=== PATIENT | male | born 1940 | race Caucasian/White ===

== ENCOUNTER 2017-06-01 07:03 | Inpatient (IN) | payer MEDICARE ==
--- NOTE | 2017-05-29 17:23 | HP ---
HISTORY AND PHYSICAL: DATE OF ADMISSION/SURGERY: 06/01/17 DATE OF EXAMINATION: 05/26/17 PROCEDURE: Left total hip replacement. ATTENDING PHYSICIAN: Dr. Charlee Ramos * (DICTATED BY RIDDHI VEGA) CHIEF COMPLAINT: Left hip pain. HISTORY OF PRESENT ILLNESS: The patient is a very pleasant 76-year-old gentleman, who presents today for history and physical examination of his left hip pain. The patient had a right total hip arthroplasty [address] Scott and states over the past year, his hip pain has become more severe where he is unable to perform his ADLs without difficulty. He has tried conservative methods such as antiinflammatory, home exercises, and using a cane; however, has not had any improvement and he would like to undergo a left total hip replacement by Dr. Charlee Ramos, which is scheduled for 06/01/17. PAST MEDICAL HISTORY: 1. Osteoarthritis. 2. Hypertension. 3. Hypercholesterolemia. 4. Hypothyroidism. PAST SURGICAL HISTORY: 1. Right total hip arthroplasty, 2001, with a history of dislocation on postop day 2. 2. Left rotator cuff shoulder repair. MEDICATIONS: 1. Aspirin 325 mg 1 tablet daily. 2. Levothyroxine 75 mcg 1 tablet daily. 3. Zocor 20 mg 1 tablet daily. 4. Metoprolol XL 25 mg 1 tablet daily. ALLERGIES: No known drug allergies. FAMILY MEDICAL HISTORY: Father with heart disease and cancer. SOCIAL HISTORY: The patient lives with his in [place]. No tobacco or recreational drug use or alcohol use. Walks independently with occasional use of a cane. 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 REVIEW OF SYSTEMS: General: Denies fever, chills. Positive for intentional weight loss. Positive for lightheadedness with getting out of bed or rolling over quickly. No lightheadedness with going from sitting to standing position. HEENT: No headaches. No fainting. Cardio: Denies chest pain, palpitations, or history of murmur. Pulmonary: Positive for shortness of breath. The patient recently underwent stress testing for this. No history of CO. No history of COPD. GI: Positive for UTI approximately 2 to 3 months ago. Denies urinary frequency, urgency. No history of chronic or frequent UTIs. No history of kidney stones. : Negative for nausea, vomiting, constipation, diarrhea. Integument: No bruises, open wounds, or sores. No difficulty with wound healing. Hematologic: No history of DVT or PEs. No history of anemia or easy bruising/bleeding. Infectious Disease: No history of MRSA, hepatitis, VRE , or HIV. Endocrine: Positive for hypothyroidism. Negative for diabetes. Musculoskeletal: Positive for chronic lower back pain. Positive for right hip pain. PHYSICAL EXAMINATION VITAL SIGNS: Height 66 inches, weight 270 pounds, pulse 64, blood pressure 130/ 80, respirations 16, temperature 98.5, BMI is 43.6 DIAGNOSTIC STUDIES: Radiographs of the right hip showed an uncemented right total hip arthroplasty. The left hip showing severe end-stage arthritis with bone-to- bone contact, osteophyte formation, and joint space narrowing. ASSESSMENT: Left end-stage arthritis of the hip. PLAN: This is a very pleasant 76-year-old gentleman with left-sided hip pain. He was elected to undergo a left total hip arthroplasty by Dr. Ramos on . He will undergo PAT testing this afternoon. No medications were sent to the patient's pharmacy preoperatively as the patient is unsure of what narcotic medication he will be able to take. He underwent a nuclear stress test, which showed an ejection fraction of 60% and was seen by Dr. Hernandez with regards to Cardiology as well as by his primary care, Dr. Butt. He had no questions or concerns with regards to the procedure and postop recovery, he would like to recover at home. RIDDHI VEAG [id number]/[facility] #: [id number] [facility] HOSPITALBrie
[~2017-06-01 07:03] MED LIST: Buffered Lidocaine 0.9% SYRIN* 5 ML/SYR SYRINGE INTRADERM ONE
[2017-06-01] MEDS ORDERED: ceFAZolin 2 GM PREMIX (*) 2 GM/50 ML BAG IVPB ONE (07:14)
[2017-06-01] MEDS ORDERED: ceFAZolin 1 GM* X ONE DOSE IVPB ×2 (07:15)
[2017-06-01] MEDS ORDERED: Buffered Lidocaine 0.9% SYRIN* 5 ML/SYR SYRINGE ONE (07:15)
[2017-06-01] MEDS ORDERED: Midazolam* 1 MG/ML 2 ML VIAL (2 MG) ONE ×3 (08:48→09:36)
[2017-06-01] MEDS ORDERED: Morphine PF AMP (0.5MG/ML)* 5 MG/10 ML AMP ONE (09:07)
[2017-06-01] MEDS ORDERED: fentaNYL* 50 MCG/ML 2 ML VIAL (100 MCG VIAL) ONE (09:07)
[2017-06-01] MEDS ORDERED: Phenylephrine INJ* 10 MG/ML 1 ML VIAL (10 MG) ONE (09:56)
[2017-06-01] MEDS ORDERED: diPHENhydraMINE IV* 50 MG/ML 1 ml VIAL (BENADRYL) ONE (09:59)
[2017-06-01] MEDS ORDERED: Dexmedetomidine* 200 MCG/2 ML 2 ML VIAL ONE (10:08)
[2017-06-01] MEDS ORDERED: Dexamethasone IV* 4 MG/ML 1 ML (4 MG) ONE (10:33)
[2017-06-01] MEDS ORDERED: EPHEDrine (Pressors)* 50 MG/ML VIAL ONE (10:33)
[2017-06-01] MEDS ORDERED: Famotidine IV* 10 MG/ML 2 ML (20 mg) ONE (10:33)
[2017-06-01] MEDS ORDERED: Lidocaine 2% PF * 5 ML VIAL ONE (10:36)
[2017-06-01] MEDS ORDERED: Phenylephrine INJ* 50 MG in NS 0.9% 250 ML* 245 ML IV PRN (11:15)
[2017-06-01] MEDS ORDERED: fentaNYL* 50 MCG/ML 2 ML VIAL (100 MCG VIAL) IV PRN (11:15)
[2017-06-01] MEDS ORDERED: Acetaminophen TAB* 325 MG PO PRN (11:15)
[2017-06-01] MEDS ORDERED: Ondansetron INJ* 2 MG/ML VIAL IV PRN ×2 (11:15→11:17)
[2017-06-01] MEDS ORDERED: DiMENhydriNATE IV* 50 MG/ML VIAL IV PUSH PRN (11:17)
[2017-06-01] MEDS ORDERED: Naloxone* 0.4 MG/ML 1 ML VIAL IV PRN (11:17)
[2017-06-01] MEDS ORDERED: Nalbuphine* 20 MG/ML 1 ML VIAL IV PRN (11:17)
[2017-06-01] MEDS ORDERED: diPHENhydraMINE IV* 50 MG/ML 1 ml VIAL (BENADRYL) IV PRN (11:17)
[2017-06-01] MEDS ORDERED: HYDROcodone/ACETAMIN 5-325 MG* 1 TAB PO PRN (11:17)
[2017-06-01] MEDS ORDERED: PROCHLORPERAZINE INJ 5 MG/ML 2 ML VIAL IV PRN (11:17)
[2017-06-01] MEDS ORDERED: Bisacodyl SUPP* 10 MG SUPP PR PRN (12:42)
[2017-06-01] MEDS ORDERED: Magnesium Hydroxide LIQ* 30 ML UDC PO PRN (12:42)
--- NOTE | 2017-06-01 12:57 | RAD ---
INDICATION: Left hip replacement COMPARISON: None Single crosstable lateral portable view shows initiation of left hip arthroplasty. There is placement of the acetabular cup with a femoral stem placed for sizing.
[2017-06-01] MEDS ORDERED: ceFAZolin 1 GM VIAL(*) 1 GM in NS 0.9% 50 ML* 50 ML IVPB SCH (13:00)
--- NOTE | 2017-06-01 13:35 | RAD ---
INDICATION: Status post total left hip replacement surgery. COMPARISON: Comparison is made with a prior study from March 06, 2017. TECHNIQUE: An AP view of the pelvis and frontal and lateral views of the left hip were obtained. FINDINGS: The patient is status post total left hip replacement surgery. The bones and prostheses are in normal alignment. There is a small amount of air present laterally consistent with the patient's recent surgery. The patient's also status post remote total right hip replacement surgery. IMPRESSION: STATUS POST TOTAL LEFT HIP REPLACEMENT SURGERY.
[2017-06-01] MEDS: Acetaminophen TAB* 325 MG PO SCH ×4 (14:50→23:59)
[2017-06-01] MEDS: ceFAZolin 1 GM VIAL(*) 1 GM in NS 0.9% 50 ML* 50 ML IVPB SCH ×2 (16:32→23:59)
[2017-06-01] MEDS ORDERED: Warfarin TAB(*) 6 MG PO ONE (17:00)
[2017-06-01] MEDS: Atorvastatin* 10 MG TAB PO SCH (17:47)
[2017-06-01] MEDS: Metoprolol Succinate XL TAB* 25 MG PO SCH (20:51)
[2017-06-01] MEDS: Levothyroxine TAB* 75 MCG TAB PO SCH (20:51)
[2017-06-01] MEDS: Docusate CAP* 100 MG PO SCH (20:52)
[2017-06-01] MEDS ORDERED: [UNRECOGNIZED DRUG - OTHER] PO SCH (21:00)
[2017-06-01] MEDS ORDERED: PRESERVISION AREDS PO SCH (21:00)
[2017-06-02] MEDS ORDERED: oxyCODONE/Acetamin 5/325 MG* TAB PO PRN (01:30)
[2017-06-02] MEDS ORDERED: diPHENhydraMINE PO* 25 MG PO PRN (01:30)
[2017-06-02] MEDS ORDERED: Morphine INJ* 2 MG/ML 1 ML SYRINGE (TWO MG - NEW SYRINGE VERSION) IV PRN (01:30)
[2017-06-02] MEDS ORDERED: Acetaminophen TAB* 325 MG PO PRN (01:30)
[2017-06-02] MEDS: oxyCODONE/Acetamin 5/325 MG* TAB PO PRN ×3 (05:39→21:13)
[2017-06-02] MEDS: Levothyroxine TAB* 75 MCG TAB PO SCH (05:39)
[2017-06-02 06:39] LABS: Hematocrit 33 % (42-52)
[2017-06-02 06:55] LABS: BUN/Creatinine Ratio 15.7 (8-20); Calcium 8.6 mg/dL (8.6-10.3); EGFR African American 140.3 (>60); EGFR Non-African American 109.1 (>60); Potassium 4.1 mmol/L (3.5-5.0)
[2017-06-02] MEDS: ceFAZolin 1 GM VIAL(*) 1 GM in NS 0.9% 50 ML* 50 ML IVPB SCH (07:30)
[2017-06-02] MEDS: Vitamin THERAPEUTIC TAB PO SCH (08:13)
[2017-06-02] MEDS: Docusate CAP* 100 MG PO SCH ×2 (08:13→21:13)
--- NOTE | 2017-06-02 12:28 | OP ---
OPERATIVE REPORT: DATE OF OPERATION: 06/01/17 DATE OF : 36 SURGEON: Charlee Ramos MD FRUIT BUYING GRADER: RIDDHI Mcmahon Ms. Rajan did help throughout the procedure with preparation of the leg, wound retraction, manipul ation of the hip, and wound closure. ANESTHESIOLOGIST: Agustin Vitale MD ANESTHESIA: Spinal. PRE-OP DIAGNOSIS: Severe end-stage degenerative osteoarthritis of the left hip joint. POST-OP DIAGNOSIS: Severe end-stage degenerative osteoarthritis of the left hip joint. OPERATIVE PROCEDURE: Left total hip arthroplasty. INDICATIONS: Mr. Roman is a 76-year-old gentleman, who is here with years of increasingly severe left hip pain. He failed conservative treatment with antiinflammatories, pain medications, physical therapy, and intraarticular injection. He elected to undergo left total hip arthroplasty due to co ntinued pain and decreased quality of life. His radiograph showed severe [id number] arthritis. I nformed consent was obtained from the patient. He understood the risks of surgery included, but wer e not limited to, bleeding, infection, damage to nearby structures, continued pain, need for further surgery, intraoperative fracture, nerve palsy, hardware failure or loosening, dislocation, leg desmond th discrepancy, stroke, heart attack, blood clot, and . He wished to proceed. ESTIMATED BLOOD LOSS: 350 cc. COMPLICATIONS: None. SPECIMEN: Femoral head and acetabular reaming sent to Pathology. HARDWARE USED: This is uncemented Dawson total hip hardware. For the cup, a Tritanium cluster hol e shell 58F, a single 25-mm cancellous bone screw. For the liner, an MDM cementless liner 46F. For the femoral stem, an Accolade TMZF 4.5 with a 127-degree neck. For the head, a Biolox delta cerami c V40 28+0. For the insert, a faith MDM 28/28/52/46F. INTRAOPERATIVE FINDINGS: Intraoperatively, the patient was noted to have severe end-stage arthritis with complete loss of cartilage in the femoral head and acetabulum. DESCRIPTION OF PROCEDURE: Mr. Roman was identified in the preanesthesia unit. His left lower extr emity was marked as the correct operative side. Informed consent was signed and placed in the chart . The patient was taken to the operating room and placed under spinal anesthesia. A Corona catheter was placed. The patient was placed in the right lateral decubitus position on the pegboard. All b char prominences were well padded. Left lower extremity was prepped and draped in the usual sterile fashion. Preop time-out was made to correctly identify the patient's side and site. Appropriate pe rioperative antibiotics were given within 1 hour of incision. A 15-cm posterior hip incision was made with a 10-blade and carried down sharply to the lateral fasc ial layer. Lateral fascia was incised in line with the skin incision. A Charnley retractor was sam claire and the posterior hip joint was visualized. The piriformis and conjoint tendons were elevated o ff the posterolateral femur using electrocautery. These were tagged with #5 Ethibond's. Electrocaut cruz was used to make a standard posterolateral capsular flap, and this was also tagged with #5 Ethib ond's. The hip was carefully dislocated. Lesser troch to center of the femoral head measured 60 mm . Oscillating saw was used to make the appropriate femoral neck cut. The femoral head was removed. The femur was carefully retracted anteriorly. After appropriate placement of retractors, the acet abulum was visualized. A long-handled knife was used to sharply remove any remaining labrums on the acetabular rim. The acetabulum was sequentially reamed up to a size 57. A good bleeding subchondr al bone bed was obtained. 57 trial had excellent stability. Final implant chosen was a Tritanium c luster hole shell 58F. This was impacted into the acetabulum without difficulty. Stability was obta ined. Appropriate anteversion and abduction angle were obtained. A single 25-mm cancellous bone scr ew was placed in the superoposterior quadrant for extra stability. MDM cementless liner 46F was cho sen and this was impacted into the acetabulum. Stability of the liner was checked and rechecked and noted to be stable. Attention was next turned to the preparation of the proximal femur. A canal finder was used to ente r the proximal femur. The proximal femur was sequentially broached up to a size 4.5. 4.5 broach morton d excellent fit, stability, and anteversion. 127- degree neck trial with a 28+0 head trial and a 28 /52/46F insert trial was placed. Lesser troch to center of the femoral head measured 61 mm. The hip was reduced and taken through range of motion. The hip was stable in all positions. Leg length an d soft tissue tension was appropriate. The hip was carefully dislocated. All trials were carefully removed. Final implant chosen was an A ccolade TMZF 4.5 with a 127-degree neck. This was impacted into the femoral canal without difficult y. A 28+0 ceramic Biolox V40 head was used as well as a 28/52/46F faith MDM insert. This was impacted on to the femoral neck without difficulty. Lesser troch to center of the femoral head kartik sured 62 mm. The hip was reduced and taken through range of motion. The hip was stable in all posi tions. The hip was copiously irrigated with sterile saline. Previously tagged capsule and tendons were lane pproximated to the posterolateral femur through 2 trochanteric drill holes. The lateral fascial lay er was closed using interrupted #1 Vicryl's. The rest of the incision was closed in a layered fashio n using 0 and 2-0 Vicryl's. The skin was closed using running 3-0 Monocryl and Dermabond. Sterile A daptic, 4x4's, and paper tape were used to cover the incision. The patient's anesthesia was reversed without difficulty. He was taken to the PACU in stable condit ion. Intended weightbearing will be weightbearing as tolerated. Intended DVT prophylaxis will be Co umadin with a Lovenox bridge. [id number]/[facility] #: [id number]
--- NOTE | 2017-06-02 12:59 | PN ---
Progress Note - Progress Note Date of Service: 06/02/17 SOAP: Subjective: []Patient was seen out of bed in chair today. He reports feeling well and having good pain control. Hemovac drain was removed by Dr Ramos this morning with no complications. Objective: [] Laboratory Last Values Hgb 11.0 g/dl (14.0-18.0) L 06/02/17 06:20 Hct 33 % (42-52) L 06/02/17 06:20 INR (Anticoag Therapy) 1.24 (0.89-1.11) H 06/02/17 06:20 Sodium 136 mmol/L (133-145) 06/02/17 06:20 Potassium 4.1 mmol/L (3.5-5.0) 06/02/17 06:20 Chloride 105 mmol/L (101-111) 06/02/17 06:20 Carbon Dioxide 26 mmol/L (22-32) 06/02/17 06:20 Anion Gap 5 mmol/L (2-11) 06/02/17 06:20 BUN 11 mg/dL (6-24) 06/02/17 06:20 Creatinine 0.70 mg/dL (0.67-1.17) 06/02/17 06:20 Est GFR ( Amer) 140.3 (>60) 06/02/17 06:20 Est GFR (Non-Af Amer) 109.1 (>60) 06/02/17 06:20 BUN/Creatinine Ratio 15.7 (8-20) 06/02/17 06:20 Glucose 133 mg/dL (70-100) H 06/02/17 06:20 Calcium 8.6 mg/dL (8.6-10.3) 06/02/17 06:20 Vital Signs Temp 98.8 F 06/02/17 11:04 Pulse 70 06/02/17 11:04 Resp 16 06/02/17 11:04 BP 107/62 06/02/17 11:04 Pulse Ox 95 06/02/17 11:04 Intake & Output 06/01/17 06/02/17 06/02/17 18:59 06:59 18:59 Intake Total 2600 1775 1021 Output Total 500 700 Balance 2100 1075 1021 Weight 271 lb Intake: IV Fluids 2600 975 705 3 GM ANCEF 100 LR 2500 975 705 IVPB 76 ABX - CEFAZOLIN 76 Oral 800 240 Output: Corona 300 700 Estimated Blood Loss 200 Other: # Bowel Movements 0 General: Patient appears well, no acute distress LLE: -No erythema or edema. -Calf is supple and nontender. -DF and PF intact. - Sensation intact distally. Assessment: [] Left total hip arthroplasty POD 1 Plan: []WBAT LLE Coumadin 6 mg today Home with VNS follow up in 1-2 days
[2017-06-02] MEDS: Enoxaparin(*) 30 MG/0.3 ML SYR SUBCUT SCH (13:00)
[2017-06-02] MEDS ORDERED: Warfarin TAB(*) 6 MG PO ONE (17:00)
[2017-06-02] MEDS: Atorvastatin* 10 MG TAB PO SCH (17:29)
[2017-06-02] MEDS: Metoprolol Succinate XL TAB* 25 MG PO SCH (21:14)
[2017-06-03 05:00] LABS: Hematocrit 31 % (42-52); Hemoglobin 10.5 g/dl (14.0-18.0); Mean Platelet Volume 8 um3 (7.4-10.4)
[2017-06-03] MEDS: Levothyroxine TAB* 75 MCG TAB PO SCH (06:21)
[2017-06-03] MEDS: oxyCODONE/Acetamin 5/325 MG* TAB PO PRN ×2 (07:23→11:07)
[2017-06-03] MEDS: Vitamin THERAPEUTIC TAB PO SCH (08:11)
[2017-06-03] MEDS: Docusate CAP* 100 MG PO SCH (08:11)
--- NOTE | 2017-06-03 09:17 | PN ---
Progress Note - Progress Note Date of Service: 06/03/17 SOAP: Subjective: Pt. is alert, pain controlled. Objective: LLE - dressing changed, inc c/d/i. distally nvi. Vital Signs: Temp Pulse Resp BP Pulse Ox 99.4 F 86 20 127/75 96 06/03/17 07:39 06/03/17 07:39 06/03/17 08:00 06/03/17 07:39 06/03/17 07:58 Laboratory Results - last 24 hr 06/03/17 06/03/17 04:35 04:40 Hgb 10.5 L Hct 31 L Plt Count 173 MPV 8 INR (Anticoag Therapy) 1.48 H Assessment: 76 yo M pod 2 s/p LTHA Plan: wbat lle post hip precautions lovenox today 6 mg coumadin 06/03 and 06/04 d/c to home today with services
[2017-06-03] MEDS: Enoxaparin(*) 30 MG/0.3 ML SYR SUBCUT SCH (11:08)
[2017-06-03 11:25] VITALS: BP 149/79
--- NOTE | 2017-06-03 14:31 | DS ---
Amended report to enter cosigning doctor on report. DISCHARGE SUMMARY: DATE OF ADMISSION: 06/01/17 DATE OF DISCHARGE: 06/03/17 PROVIDER: Dr. Ramos* (dictated by RIDDHI Alexander). ADMITTING DIAGNOSIS: Status post left total hip arthroplasty. CONSULTATIONS: Physical Therapy and Occupational Therapy. HISTORY OF PRESENT ILLNESS: Mr. Roman is a very pleasant 76-year-old gentleman, who presented for a history of left hip pain. He said pain had become more severe over the past year and he has been unable to perform his activities of daily living without difficulty. He has failed conservative measures such as antiinflammatories, home exercises, use of a cane, and elected to undergo a left total hip replacement by Dr. Charlee Ramos, which was performed on 06/01/17. HOSPITAL COURSE: The patient was admitted to [facility] on 06/01/17 and underwent a left total hip arthroplasty with no complications. The patient recovered briefly in the postanesthesia care unit and was transferred to the short stay surgical unit in stable condition. On postop day #1, the patient's H and H was 11.0 and 33. INR was 1.24 after 6 mg of Coumadin the night before. Dressing was clean, dry, and intact. Left lower extremity was neurovascularly intact. He could demonstrate dorsiflexion and plantar flexion with good strength. The patient was able to get out of bed with physical therapy. The pain was controlled with oral Percocet 5/325. On postop day #2, the urinary catheter was discontinued and the patient was able to void without difficulty. Incision was found to be benign with minimal drainage. No erythema or warmth. The patient's H and H was 10.5 and 31. INR was 1.48 after 6 mg of Coumadin the night before. The pain was well controlled with Percocet 5 /325 oral again. The patient was able to ambulate with the use of a rolling walker and assistance. The patient's pain was well controlled and found to be stable for discharge. Throughout the hospital course, vital signs remained stable and the patient was afebrile. DISCHARGE CONDITION: Good. DISCHARGE MEDICATIONS: 1. Percocet 5/325, take 1 to 2 tabs every 4 to 6 hours as needed for pain. 2. Coumadin 2 mg. 3. Colace 100 mg. HOME MEDICATIONS: 1. Levothyroxine 75 mcg 1 tablet daily. 2. Zocor 20 mg 1 tablet daily. 3. Metoprolol XL 25 mg 1 tablet daily. DISCHARGE INSTRUCTIONS: Weightbearing as tolerated. WOUND CARE: Okay to shower, no bathing, swimming, submerging wound. Use gentle soap, pat dry. Cover with gauze, Markus wrap, or tape. Call orthopedic office for increased drainage, redness, increased pain, or fever. Go to ER with shortness of breath or chest pain. DIET: Regular diet, increase fluids and fiber to prevent constipation. Continue to use stool softeners, call the office if no bowel motion within 48 hours. DISCHARGE INSTRUCTIONS: Continue hip precautions, do not cross legs or bend greater than 90 degrees/squat. Continue physical therapy and occupational therapy, exercise as shown. Visiting home nurse to do wound checks and to draw blood work for INR on Monday and . Coumadin dosing: INR, on 06/03/17, is 1.48. 06/03/17, 6 mg. 06/04/17, 6 mg. Percocet 5/325 one to two tabs as needed for pain. Antibiotics required prior to any dental work. Follow up with Dr. Ramos within 10 to 14 days. Call for an appointment. RIDDHI ALEXANDER [id number]/[facility] #: [id number] MT[facility]rie
[2017-06-03] MEDS ORDERED: Warfarin TAB(*) 6 MG PO ONE (17:00)
== END 2017-06-03 11:50 | disposition home or self-care (01) | DRG 470 ==
LOC: AA 07:03 → SSU 15:23
PROVIDERS: ADMIT Orthopaedic Surgery Adult Reconstructive Orthopaedic Surgery; ATTEND Orthopaedic Surgery Adult Reconstructive Orthopaedic Surgery
PROC: 0SRB01A Replacement of Left Hip Joint with Metal Synthetic Substitute, Uncemented, Open Approach (ICD-10-PCS; principal; 2017-06-01 09:00)
DX: M16.0 Bilateral primary osteoarthritis of hip (principal); Z96.641 Presence of right artificial hip joint; E78.00 Pure hypercholesterolemia, unspecified; I10 Essential (primary) hypertension; M25.752 Osteophyte, left hip; Z79.82 Long term (current) use of aspirin; Z79.899 Other long term (current) drug therapy; Z82.49 Family history of ischemic heart disease and other diseases of the circulatory system; Z80.9 Family history of malignant neoplasm, unspecified
CPT/HCPCS: 36415; 80048; 85014; 85018; 85049; 85610; 94760; A9270-GY; C1713; C1776; J0690; J1100; J1200; J1650; J2250; J3010